=== PATIENT | male | born 1995 ===

== ENCOUNTER 2017-12-06 20:50 | Emergency (ER) | payer SELFPAY ==
[2017-12-06 21:20] VITALS: BP 179/80; PULSE 62; RESP 18; TEMP 99.2; O2SAT 99
[2017-12-06] MEDS ORDERED: Tetanus/Diphtheria Toxoids 0.5 ml Syringe IM ONE ×2 (23:01→23:05)
[2017-12-06] MEDS ORDERED: Bacitracin 500 Units/gm Oint Foilpak UD ONE (23:04)
[2017-12-06] MEDS ORDERED: Lidocaine Hydrochloride 0 ML INJ ONE (23:04)
[2017-12-06] MEDS ORDERED: Lidocaine 1% Inj (20ml) INFIL ONE (23:08)
[2017-12-06] MEDS ORDERED: Bacitracin Ointment 30 GM TUBE TOP STA (23:08)
[2017-12-06] MEDS ORDERED: Lidocaine Hydrochloride 5 ML INJ ONE (23:31)
--- NOTE | 2017-12-06 23:59 | C.PDOC ---
History Of Present Illness 22 year old male presents to the emergency department status-post suffering a laceration to the palmar aspect of his left hand with a razor. Patient denies weakness or numbness. Time Seen by Provider: 12/06/17 22:14 Chief Complaint (Nursing): Abnormal Skin Integrity History/Exam Limitations: no limitations Onset/Duration Of Symptoms: Hrs Current Symptoms Are (Timing): Still Present Location Of Injury: Left: Hand Quality Of Symptoms: Other (laceration) Past Medical History Reviewed: Historical Data, Nursing Documentation, Vital Signs Vital Signs: Last Vital Signs Temp 99.2 F 12/06/17 21:17 Pulse 62 12/06/17 21:17 Resp 18 12/06/17 21:17 BP 179/80 H 12/06/17 21:17 Pulse Ox 99 12/07/17 04:17 - Medical History PMH: No Chronic Diseases Surgical History: No Surg Hx Family History: States: No Known Family Hx - Social History Hx Alcohol Use: No Hx Substance Use: No - Immunization History Hx Tetanus Toxoid Vaccination: No Hx Influenza Vaccination: No Hx Pneumococcal Vaccination: No Review Of Systems Musculoskeletal: Positive for: Hand Pain Neurological: Negative for: Weakness, Numbness Physical Exam - Physical Exam Appears: Non-toxic, No Acute Distress Skin: Other (4 cm laceration to the thenar eminence of the left palm. No active bleeding, no tendon injury or tendon visualized.) Eye(s): bilateral: Normal Inspection Extremity: Normal ROM, No Tenderness, Other Neurological/Psych: Oriented x3, Normal Motor, Normal Sensation ED Course And Treatment O2 Sat by Pulse Oximetry: 99 (RA) Pulse Ox Interpretation: Normal Progress Note: Plan: Laceration Repair. Bacitracin 1gm TOP. Lidocaine 1% 20ml. Tetanus 0.5ml IM Laceration - Laceration Repair Left Hand Wound Length (In cm): 4 cm Description Of Wound: Linear, Clean Anesthesia: Lidocaine 1% Wound Examination: Irrigated With Saline, No FB With Wound Exploration, No Tendon Injury With Wound Exploration Wound Closure: Suture (x 4) Suture Technique And Material Used: Interrupted, Nylon (3-O) Wound Complexity: Intermediate (well tolerated) Disposition Counseled Patient/Family Regarding: Diagnosis, Need For Followup - Disposition Referrals: Non [facility] Provider, [Primary Care Provider] - Disposition: HOME/ ROUTINE Disposition Time: 23:56 Condition: STABLE Additional Instructions: Please follow up with PMD or clinic in 2 days for wound check Follow wound care instructions Apply antibacterial ointment Suture removal in 10 days Return to ER if worse Instructions: Laceration Repair With Stitches (DC) Forms: [employer] [facility] (Lao) - Clinical Impression Clinical Impression: Hand laceration - PA / HORSER UP / Resident Statement MD/DO has reviewed & agrees with the documentation as recorded. - Scribe Statement The provider has reviewed the documentation as recorded by the Scribe (Jet Urrutia) All medical record entries made by the Scribe were at my direction and personally dictated by me. I have reviewed the chart and agree that the record accurately reflects my personal performance of the history, physical exam, medical decision making, and the department course for this patient. I have also personally directed, reviewed, and agree with the discharge instructions and disposition.
== END 2017-12-07 00:09 | disposition home or self-care (01) ==
LOC: SUPCPDRO 20:50 → C.ER 20:50
DX: S61.412A Laceration without foreign body of left hand, initial encounter (principal); W45.8XXA Other foreign body or object entering through skin, initial encounter